=== PATIENT | male | born 1945 | race Caucasian/White ===

== ENCOUNTER 2016-12-31 22:59 | Emergency (ER) | payer MEDICARE, BC ==
[2017-01-01] MEDS ORDERED: ASPIRIN 81 MG TABLET, CHEWABLE PO ONE (00:30)
[2017-01-01 00:37] LABS: ABSOLUTE EOSINOPHILS # (AUTO) 0.2 10^3/uL (0.0-0.6); ABSOLUTE LYMPHOCYTES (AUTO) 1.5 10^3/uL (0.5-4.7); ABSOLUTE MONOCYTES (AUTO) 0.5 10^3/uL (0.1-1.4); ABSOLUTE NEUT (AUTO) 2.2 10^3/uL (1.7-8.2); BASOPHILS % (AUTO) 0.8 % (0-2); EOSINOPHILS % (AUTO) 4.5 % (0-6); HEMATOCRIT 39.7 % (37.9-51.0); HEMOGLOBIN 13.6 g/dL (13.5-17.0); HGB HCT DIFFERENCE 1.1; LYMPHOCYTES % (AUTO) 33.6 % (13-45); MEAN CORPUSCULAR HGB CONC 34.3 g/dL (32.0-36.0); MEAN CORPUSCULAR VOLUME 97 fl (80-97); MONOCYTES % (AUTO) 11.2 % (3-13); RED BLOOD COUNT 4.12 10^6/uL (4.35-5.55); RED CELL DISTRIBUTION WIDTH 12.9 % (11.5-14.0); SEGMENTED NEUTROPHILS % (AUTO) 49.9 % (42-78); WHITE BLOOD COUNT 4.4 10^3/uL (4.0-10.5)
[2017-01-01] MEDS ORDERED: FAMOTIDINE 20 MG TABLET PO ONE (00:37)
[2017-01-01 00:54] LABS: ALANINE AMINOTRANSFERASE 31 U/L (21-72); ALBUMIN 4.4 g/dL (3.5-5.0); ALKALINE PHOSPHATASE 49 U/L (38-126); ANION GAP 11 (5-19); ASPARTATE AMINO TRANSFERASE 46 U/L (17-59); BILIRUBIN,DIRECT 0.3 mg/dL (0.0-0.4); BILIRUBIN,TOTAL 0.5 mg/dL (0.2-1.3); BLOOD UREA NITROGEN 17 mg/dL (7-20); CALCIUM 9.4 mg/dL (8.4-10.2); CARBON DIOXIDE 25 mmol/L (22-30); CHLORIDE 103 mmol/L (98-107); CREATINE KINASE 131 U/L (55-170); CREATININE RESULT 0.86 mg/dL (0.52-1.25); GLUCOSE 102 mg/dL (75-110); POTASSIUM 4.2 mmol/L (3.6-5.0); SODIUM 138.8 mmol/L (137-145); TOTAL PROTEIN 7.4 g/dL (6.3-8.2)
--- NOTE | 2017-01-01 00:55 | ER Document Report ---
ED Cardiac - General Chief Complaint: Chest Pressure Stated Complaint: CHEST PRESSURE Time Seen by Provider: 01/01/17 00:30 Notes: Patient is a 71 year old male that comes to the ED for chief complaint of chest discomfort and a pressure sensation across the mid lower chest. Symptoms started at about noon today, reports he gets about 10 seconds of discomfort at random which resolves. He denies shortness of breath, cough, radiation to his back, nausea/vomiting. Unchanged with lying down, eating, or exertion. Denies history of HI, past medical history includes cardiomyopathy, COPD, hypertension , abdominal AAA. He states he had a negative stress test years ago. He has a follow-up with cardiology within the next few days. His primary care provider is in [facility]. He denies current chest pain. TRAVEL OUTSIDE OF THE [place] IN LAST 30 DAYS: No - Related Data Allergies/Adverse Reactions: ciprofloxacin [Ciprofloxacin] Allergy (Verified 01/01/17 00:18) clonidine [Clonidine] Allergy (Verified 01/01/17 00:18) levofloxacin [From Levaquin] Allergy (Verified 01/01/17 00:18) pravastatin [Pravastatin] Allergy (Verified 01/01/17 00:18) rosuvastatin calcium [From Crestor] Allergy (Verified 01/01/17 00:18) simvastatin [Simvastatin] Allergy (Verified 01/01/17 00:18) Home Medications: Current Home Medications Albuterol Sulfate [Ventolin Hfa] 1 - 2 puff IH Q4 PRN 01/01/17 [History] Amlodipine Besylate [Amlodipine Besylate] 1 tab PO QPM 01/01/17 [History] Fluticasone/Salmeterol [Advair 250-50 Diskus 28 dose] 1 inh IH Q12H 01/01/17 [ History] Gabapentin [Gabapentin] 1 cap PO BID 01/01/17 [History] Losartan Potassium [Losartan Potassium] 1 tab PO QAM 01/01/17 [History] Primidone [Primidone] 1 tab PO QPM 01/01/17 [History] Past Medical History - General Information source: Patient - Social History Smoking Status: Former Smoker Chew tobacco use (# tins/day): No Frequency of alcohol use: None Drug Abuse: None Lives with: Family Family History: Reviewed & Not Pertinent - Past Medical History Cardiac Medical History: Reports: Hx Hypercholesterolemia, Hx Hypertension Pulmonary Medical History: Reports: Hx COPD Renal/ Medical History: Reports: Hx Kidney Stones. Denies: Hx Peritoneal Dialysis Past Surgical History: Reports: Hx Cardiac Surgery - AAA, Hx Kidney (Renal Surgery) - Lithotripsy - Immunizations Hx Diphtheria, Pertussis, Tetanus Vaccination: Yes Review of Systems - Review of Systems Constitutional: No symptoms reported EENT: No symptoms reported Cardiovascular: See HPI Respiratory: No symptoms reported Gastrointestinal: No symptoms reported Genitourinary: No symptoms reported Male Genitourinary: No symptoms reported Musculoskeletal: No symptoms reported Skin: No symptoms reported Hematologic/Lymphatic: No symptoms reported Neurological/Psychological: No symptoms reported Physical Exam - Vital signs Vitals: Temp 97.6 F 12/31/16 23:17 Interpretation: Normal - General General appearance: Appears well In distress: None - HEENT Head: Normocephalic, Atraumatic Eyes: Normal Pupils: PERRL - Respiratory Respiratory status: No respiratory distress Chest status: Nontender Breath sounds: Normal. No: Decreased air movement Chest palpation: Normal - Cardiovascular Rhythm: Regular, Bradycardia Heart sounds: Normal auscultation Murmur: No - Abdominal Inspection: Normal Distension: No distension Bowel sounds: Normal Tenderness: Nontender Organomegaly: No organomegaly - Back Back: Normal, Nontender - Extremities General upper extremity: Normal inspection, Nontender, Normal color, Normal ROM , Normal temperature General lower extremity: Normal inspection, Nontender, Normal color, Normal ROM , Normal temperature, Normal weight bearing. No: Monica's sign - Neurological Neuro grossly intact: Yes Cognition: Normal Orientation: AAOx4 Dwight Coma Scale Eye Opening: Spontaneous Dwight Coma Scale Verbal: Oriented Dwight Coma Scale Motor: Obeys Commands Sanborn Coma Scale Total: 15 Speech: Normal Motor strength normal: LUE, RUE, LLE, RLE Sensory: Normal - Psychological Associated symptoms: Normal affect, Normal mood - Skin Skin Temperature: Warm Skin Moisture: Dry Skin Color: Normal Course - Re-evaluation Re-evalutation: EKG shows sinus rhythm, bradycardia, no ST segment or T-wave abnormalities in consecutive leads, chest x-ray unremarkable, CBC, chemistry unremarkable, negative cardiac enzyme. Cardiac enzymes repeated and still negative. Patient noted to have what appears to be significant bradycardia, however he denies any dizziness, passing out, he states that he has had bradycardia like that for a long time and this is very normal for him even down into the 30s. Discussed admission for telemetry observation because of patient's age, history, nonspecific symptoms. Patient declines, he states he has a close follow-up with cardiology within the next couple of days, states that he will keep this appointment, states that he will return if he worsens, he has not had any symptoms while he was here, he states he understands return precautions and importance of following up. - Vital Signs Vital signs: Temp Pulse Resp BP Pulse Ox 97.8 F 13 149/76 H 94 01/01/17 03:50 01/01/17 03:48 01/01/17 03:48 01/01/17 03:48 - Laboratory Result Diagrams: 01/01/17 00:05 01/01/17 00:05 Laboratory results interpreted by me: 01/01/17 00:05 RBC 4.12 L Discharge - Discharge Clinical Impression: Chest pain Qualifiers: Chest pain type: unspecified Qualified Code(s): R07.9 - Chest pain, unspecified Condition: Stable Disposition: HOME, SELF-CARE Additional Instructions: Your workup did not show any acute abnormalities. Please perform close followup with your medical accounting clerk as already planned. Return to the ED for any returned or concerning worsening symptoms. Chest Pain of Unclear Cause The exact cause of your chest pain isn't clear. Fortunately, there is no evidence of a dangerous medical condition. Further testing may be required to find the source of the pain. Most often, we find that this pain is coming from the chest wall -- the muscles or rib joints in the chest. But chest pain can come from the lung and lung lining, the esophagus, the heart valves or heart lining, and even the stomach or gallbladder. Rest. Eat lightly until the pain is gone. We may prescribe medicine for pain and inflammation. You should call the physician immediately if the pain radiates to the shoulder, jaw or arms; if you start to run a fever or develop a cough; or if you develop shortness of breath, or other new or alarming symptoms. Referrals: KAISER ARNOLD MD [Primary Care Provider] - Follow up as needed
[2017-01-01 01:06] LABS: CREATINE KINASE MB 2.31 ng/mL (<4.55); TROPONIN I < 0.012 ng/mL
--- NOTE | 2017-01-01 01:32 | RADIOLOGY REPORT (SQ) ---
EXAM DESCRIPTION: CHEST SINGLE VIEW COMPLETED DATE/TIME: 01/01/2017 12:49 am REASON FOR STUDY: chest pain COMPARISON: None. EXAM PARAMETERS: NUMBER OF VIEWS: One view. TECHNIQUE: Single frontal radiographic view of the chest acquired. RADIATION DOSE: NA LIMITATIONS: None. FINDINGS: LUNGS AND PLEURA: Small left basilar atelectasis or scar. MEDIASTINUM AND HILAR STRUCTURES: No masses. Contour normal. HEART AND VASCULAR STRUCTURES: Heart normal in size. Atherosclerosis. BONES: No acute findings. HARDWARE: None in the chest. OTHER: No other significant finding. IMPRESSION: No acute cardiopulmonary findings. TECHNICAL DOCUMENTATION: JOB ID: [id number]
[2017-01-01 03:54] VITALS: BP 149/76
--- NOTE | 2017-01-01 07:12 | EKG REPORT ---
SEVERITY:- ABNORMAL ECG - SINUS BRADYCARDIA FIRST DEGREE AV BLOCK LEFT ANTERIOR FASCICULAR BLOCK : Confirmed by: Maliha Stewart 01-Jan-2017 07:11:53
== END 2017-01-01 03:55 | disposition home or self-care (01) ==
LOC: ER 22:59
DX: R07.9 Chest pain, unspecified (principal); Z87.891 Personal history of nicotine dependence; Z79.899 Other long term (current) drug therapy
CPT/HCPCS: 93005; 99285; 36415; 82553; 82550; 83690; 85025; 80053; 84484; 71010; 93010; A9270 ×2

== ENCOUNTER 2017-07-22 10:45 | Emergency (ER) | payer MEDICARE, BC ==
--- NOTE | 2017-07-22 12:22 | ER Document Report ---
ED Medical Screen (RME) - General TRAVEL OUTSIDE OF THE [place] IN LAST 30 DAYS: No <ZORA POMPA - Last Filed: 07/22/17 12:21> <JAKE RICARDO - Last Filed: 07/22/17 17:26> - General Chief Complaint: Chest Pain Stated Complaint: CHEST DISCOMFORT Time Seen by Provider: 07/22/17 12:02 Notes: 72-year-old male patient complains of chest discomfort that started may be sometime during the night but was present when he woke up this morning. He describes it as a pressure comes and goes and painful at times. There is no shortness of breath or sweating associated with this. He did have a pacemaker placed on 03/13/2017 probably for a sick sinus syndrome. There was no catheterization done but he did have an echo done. There is no history of coronary artery disease but there is vascular disease with hypertension and hyperlipidemia. He has an infrarenal abdominal aortic aneurysm which is grown to 5 cm by his history. He has an appointment with his vascular surgeon this coming Thursday. I have greeted and performed a rapid initial assessment of this patient. A comprehensive ED assessment and evaluation of the patient, analysis of test results and completion of the medical decision making process will be conducted by additional ED providers. (ZORA POMPA) - Related Data Allergies/Adverse Reactions: ciprofloxacin [Ciprofloxacin] Allergy (Verified 07/22/17 11:52) clonidine [Clonidine] Allergy (Verified 07/22/17 11:52) levofloxacin [From Levaquin] Allergy (Verified 07/22/17 11:52) pravastatin [Pravastatin] Allergy (Verified 07/22/17 11:52) rosuvastatin calcium [From Crestor] Allergy (Verified 07/22/17 11:52) simvastatin [Simvastatin] Allergy (Verified 07/22/17 11:52) Past Medical History - Social History Chew tobacco use (# tins/day): No Frequency of alcohol use: None Drug Abuse: None - Past Medical History Cardiac Medical History: Reports: Hx Hypercholesterolemia, Hx Hypertension Pulmonary Medical History: Reports: Hx COPD Renal/ Medical History: Reports: Hx Kidney Stones. Denies: Hx Peritoneal Dialysis Past Surgical History: Reports: Hx Abdominal Surgery - inguinal hernia repair, Hx Cardiac Surgery - pacemaker, Hx Kidney (Renal Surgery) - Lithotripsy - Immunizations Hx Diphtheria, Pertussis, Tetanus Vaccination: Yes <ZORA POMPA - Last Filed: 07/22/17 12:21> - Vital signs Vitals: Temp Pulse Resp BP Pulse Ox 98.0 F 59 L 16 172/87 H 97 07/22/17 10:49 07/22/17 10:49 07/22/17 10:49 07/22/17 10:49 07/22/17 10:49 Course - Laboratory Result Diagrams: 07/22/17 12:30 07/22/17 13:24 <JAKE RICARDO - Last Filed: 07/22/17 17:26> - Vital Signs Vital signs: Temp Pulse Resp BP Pulse Ox 98.0 F 59 L 16 172/87 H 97 07/22/17 10:49 07/22/17 10:49 07/22/17 10:49 07/22/17 10:49 07/22/17 10:49 Doctor's Discharge <ZORA POMPA - Last Filed: 07/22/17 12:21> <JAKE RICARDO - Last Filed: 07/22/17 17:26> - Discharge Clinical Impression: Chest pain, non-cardiac Condition: Stable Disposition: HOME, SELF-CARE Referrals: KAISER ARNOLD MD [Primary Care Provider] - Follow up in 1 week
[2017-07-22 12:57] LABS: HEMOGLOBIN 15.4 g/dL (13.5-17.0); MEAN CORPUSCULAR HEMOGLOBIN 32.9 pg (27.0-33.4); MEAN CORPUSCULAR HGB CONC 34.2 g/dL (32.0-36.0); MEAN CORPUSCULAR VOLUME 96 fl (80-97); PLATELET COUNT 248 10^3/uL (150-450); RED BLOOD COUNT 4.67 10^6/uL (4.35-5.55); RED CELL DISTRIBUTION WIDTH 13.2 % (11.5-14.0); WHITE BLOOD COUNT 8.7 10^3/uL (4.0-10.5)
--- NOTE | 2017-07-22 13:08 | RADIOLOGY REPORT (SQ) ---
EXAM DESCRIPTION: CHEST SINGLE VIEW COMPLETED DATE/TIME: 07/22/2017 12:38 pm REASON FOR STUDY: chest pain COMPARISON: 05/18/2008 EXAM PARAMETERS: NUMBER OF VIEWS: One view. TECHNIQUE: Single frontal radiographic view of the chest acquired. RADIATION DOSE: NA LIMITATIONS: None. FINDINGS: LUNGS AND PLEURA: No opacities, masses or pneumothorax. No pleural effusion. MEDIASTINUM AND HILAR STRUCTURES: No masses. Contour normal. HEART AND VASCULAR STRUCTURES: Heart normal in size. Normal vasculature. BONES: No acute findings. HARDWARE: Left subclavian pacer. OTHER: No other significant finding. IMPRESSION: No evidence of acute cardiopulmonary disease. TECHNICAL DOCUMENTATION: JOB ID: [id number] [employer]- All Rights Reserved
[2017-07-22 13:16] LABS: ABSOLUTE LYMPHOCYTES# (MANUAL) 1.9 10^3/uL (0.5-4.7); ABSOLUTE MONOCYTES # (MANUAL) 0.4 10^3/uL (0.1-1.4); ABSOLUTE NEUTROPHILS# (MANUAL) 6.2 10^3/uL (1.7-8.2); BASOPHILS % (MANUAL) 0 % (0-2); EOSINOPHILS % (MANUAL) 2 % (0-6); LYMPHOCYTES % (MANUAL) 22 % (13-45); MONOCYTES % (MANUAL) 5 % (3-13); SEGMENTED NEUTROPHILS % (MAN) 71 % (42-78); TOTAL CELLS COUNTED 100
[2017-07-22 13:22] LABS: PLATELET COMMENT ADEQUATE; RBC MORPHOLOGY COMMENT NORMO-CYTIC/CHROMIC
[2017-07-22 13:53] LABS: ALANINE AMINOTRANSFERASE 43 U/L (21-72); ALBUMIN 4.7 g/dL (3.5-5.0); ALKALINE PHOSPHATASE 42 U/L (38-126); ANION GAP 10 (5-19); ASPARTATE AMINO TRANSFERASE 47 U/L (17-59); BILIRUBIN,DIRECT 0.2 mg/dL (0.0-0.4); BILIRUBIN,TOTAL 0.7 mg/dL (0.2-1.3); BLOOD UREA NITROGEN 14 mg/dL (7-20); CALCIUM 10.2 mg/dL (8.4-10.2); CARBON DIOXIDE 27 mmol/L (22-30); CHLORIDE 102 mmol/L (98-107); CREATINE KINASE 154 U/L (55-170); GLUCOSE 103 mg/dL (75-110); MAGNESIUM 2.2 mg/dL (1.6-2.3); SODIUM 138.5 mmol/L (137-145)
--- NOTE | 2017-07-22 16:56 | RADIOLOGY REPORT (SQ) ---
EXAM DESCRIPTION: CT ABD/PELVIS WITH IV ONLY COMPLETED DATE/TIME: 07/22/2017 4:44 pm REASON FOR STUDY: HX AAA, lower ant chest pain, enlarging AAA? COMPARISON: 2014. TECHNIQUE: CT scan of the abdomen and pelvis performed using helical scanning technique with dynamic intravenous contrast injection. No oral contrast. Images reviewed with lung, soft tissue, and bone windows. Reconstructed coronal and sagittal MPR images reviewed. Delayed images for evaluation of the urinary system also acquired. All images stored on PACS. All CT scanners at this facility use dose modulation, iterative reconstruction, and/or weight based d osing when appropriate to reduce radiation dose to as low as reasonably achievable (ALARA). [facility]: Dose Right [facility]: CareDose [facility]: Dose Right [facility]: Teradose 4D [facility]: Shareholder InSite CONTRAST TYPE AND DOSE: contrast/concentration: Isovue 370.00 mg/ml; Total Contrast Delivered: 92.0 ml; Total Saline Delivered: 70.0 ml RENAL FUNCTION: Creatinine 0.8 RADIATION DOSE: CT Rad equipment meets quality standard of care and radiation dose reduction techniq ues were employed. CTDIvol: 9.4 - 13.4 mGy. DLP: 1286 mGy-cm.. LIMITATIONS: None. FINDINGS: LOWER CHEST: Mild basilar scar. LIVER: Normal size. No masses. No dilated ducts. SPLEEN: Normal size. No focal lesions. PANCREAS: No masses. No significant calcifications. No adjacent inflammation or peripancreatic fluid collections. Pancreatic duct not dilated. GALLBLADDER: No identified stones by CT criteria. No inflammatory changes to suggest cholecystitis. ADRENAL GLANDS: No significant masses or asymmetry. RIGHT KIDNEY AND URETER: No solid masses. No significant calcification. No hydronephrosis or hydroure ter. LEFT KIDNEY AND URETER: No solid masses. No significant calcification. No hydronephrosis or hydrouret er. AORTA AND VESSELS: Infrarenal abdominal aortic aneurysm measures up to 4.5 cm maximal transverse dime nsion. Heavy vascular calcification. Grossly patent mesenteric and renal arteries. No venous clot detected. RETROPERITONEUM: No evidence of retroperitoneal hematoma, adenopathy or mass. BOWEL AND PERITONEAL CAVITY: Diverticulosis throughout the distal colon. No active diverticulitis griffin ggested. No mechanical bowel obstruction, ascites or abnormal gas. APPENDIX: Normal. PELVIS: No mass. No free fluid. Normal bladder. ABDOMINAL WALL: No masses. No hernias. BONES: No significant or acute findings. OTHER: No other significant finding. IMPRESSION: 1. 4.5 cm infrarenal abdominal aortic aneurysm (increased from 2015, 3.8 cm). No evide nce of leak or retroperitoneal mass. 2. Mild colonic diverticulosis but no evidence of active diver ticulitis. 3. No acute findings in the abdomen or pelvis. TECHNICAL DOCUMENTATION: JOB ID: [id number] Quality ID # [id number]: Final reports with documentation of one or more dose reduction techniques (e.g., Au tomated exposure control, adjustment of the mA and/or kV according to patient size, use of iterative reconstruction technique) 2010 [employer]- All Rights Reserved
[2017-07-22 17:29] VITALS: BP 167/86
--- NOTE | 2017-07-22 17:37 | ER Document Report ---
ED Cardiac - General Chief Complaint: Chest Pain Stated Complaint: CHEST DISCOMFORT Time Seen by Provider: 07/22/17 12:02 Notes: Patient says he is experiencing "discomfort" in his chest since last night and early this morning. He says that every 15-20 minutes, he experiences a pain that is about 1-2 seconds in length and then it goes away. This discomfort is located across the lower anterior chest from one breast to the other. He has not found anything that makes the discomfort happen or anything that gets them to stop happening. Patient has a history of a pacemaker inserted for bradycardia and 2017. Patient has a history of a abdominal aortic aneurysm. He went for an MRI of his lumbar spine because of sciatica and they checked his aneurysm and said that it was 5 cm, which was a significant increase from his prior study in February showing the aneurysm to be 4.3 cm. Patient is very concerned and says that his primary care provider has made him an appointment to see his vascular surgeon, in [place] on Thursday. Patient says that he is not experiencing any shortness of breath or difficulty breathing. PMH: Hypertension, high cholesterol TRAVEL OUTSIDE OF THE [place] IN LAST 30 DAYS: No - Related Data Allergies/Adverse Reactions: ciprofloxacin [Ciprofloxacin] Allergy (Verified 07/22/17 11:52) clonidine [Clonidine] Allergy (Verified 07/22/17 11:52) levofloxacin [From Levaquin] Allergy (Verified 07/22/17 11:52) pravastatin [Pravastatin] Allergy (Verified 07/22/17 11:52) rosuvastatin calcium [From Crestor] Allergy (Verified 07/22/17 11:52) simvastatin [Simvastatin] Allergy (Verified 07/22/17 11:52) Past Medical History - Social History Smoking Status: Never Smoker Chew tobacco use (# tins/day): No Frequency of alcohol use: None Drug Abuse: None Family History: Reviewed & Not Pertinent Patient has suicidal ideation: No Patient has homicidal ideation: No - Past Medical History Cardiac Medical History: Reports: Hx Hypercholesterolemia, Hx Hypertension, Other - AAA Pulmonary Medical History: Reports: Hx COPD Renal/ Medical History: Reports: Hx Kidney Stones Past Surgical History: Reports: Hx Abdominal Surgery - inguinal hernia repair, Hx Cardiac Surgery - pacemaker, Hx Kidney (Renal Surgery) - Lithotripsy - Immunizations Hx Diphtheria, Pertussis, Tetanus Vaccination: Yes Review of Systems - Review of Systems Notes: CONSTITUTIONAL : Denies fever. CARDIOVASCULAR: Denies chest pain, but see HPI. RESPIRATORY: Denies cough, chest congestion, or shortness of breath. GASTROINTESTINAL: Denies abdominal pain or nausea, vomiting, or diarrhea. GENITOURINARY: Denies difficulty or painful urinating, urinary frequency, blood in urine. Physical Exam - Vital signs Vitals: Temp Pulse Resp BP Pulse Ox 98.0 F 59 L 16 172/87 H 97 07/22/17 10:49 07/22/17 10:49 07/22/17 10:49 07/22/17 10:49 07/22/17 10:49 Interpretation: Hypertensive - Mild - Notes Notes: PHYSICAL EXAMINATION: GENERAL: Well-appearing, no acute distress. HEAD: Atraumatic, normocephalic. NECK: Normal range of motion, supple. LUNGS: Breath sounds clear and equal bilaterally. No chest wall tenderness. HEART: Regular rate and rhythm without murmurs heard. Extremities: No swelling or tenderness. Negative Homans bilaterally. ABDOMEN: Soft, nontender. No guarding or rebound or masses felt. No pulsatile mass felt. Course - Vital Signs Vital signs: Temp Pulse Resp BP Pulse Ox 97.9 F 59 L 15 167/86 H 97 07/22/17 17:26 07/22/17 10:49 07/22/17 17:26 07/22/17 17:26 07/22/17 17:05 - Laboratory Result Diagrams: 07/22/17 12:30 07/22/17 13:24 - Diagnostic Test Radiology reviewed: Image reviewed, Reports reviewed - CT scan shows a 4.5 cm AAA with no leakage. This is higher than the patient's previous study here a couple of years ago, but still within the limits of what can be followed electively. - EKG Interpretation by Me Rate: Normal - 60 Additional EKG results interpreted by me: 07/22/17 19:43 Patient's EKG shows atrial pacing at 60/min. Nonspecific ST changes present. Discharge - Discharge Clinical Impression: Chest pain, non-cardiac Condition: Stable Disposition: HOME, SELF-CARE Additional Instructions: CHEST PAIN OF UNCLEAR CAUSE: The exact cause of your chest pain isn't clear. Fortunately, there is no evidence of a dangerous medical condition. Further testing may be required to find the source of the pain. Most often, we find that this pain is coming from the chest wall -- the muscles or rib joints in the chest. But chest pain can come from the lung and lung lining, the esophagus, the heart valves or heart lining, and even the stomach or gallbladder. Rest. Eat lightly until the pain is gone. We may prescribe medicine for pain and inflammation. You should call the physician immediately if the pain radiates to the shoulder, jaw or arms; if you start to run a fever or develop a cough; or if you develop shortness of breath, or other new or alarming symptoms. NORMAL EXAM AND WORKUP: At this time, your examination and workup show no significant abnormality. No significant abnormal physical findings were noted. All laboratory, EKG, and imaging (x-ray, CT scans, ultrasound) studies that were ordered show no significant abnormality. Although your examination and all studies that were ordered showed no significant abnormal finding, there are no examinations and no studies that are 100% accurate. There is always the possibility that some abnormality could exist and not be detected with physical examination or within the limits and capabilities of laboratory and other studies. You should return or follow up as you were instructed on your visit today for further evaluation if your symptoms do not resolve. Workup does not indicate a significant worsening in the size of your aneurysm. I spoke with your vascular surgeon who said that it safe to send her home and for him to see you Thursday, as scheduled, in his office. Return at anytime if you develop new or worsening symptoms. Your blood pressure is running a little bit high and I would recommend that you increase your amlodipine from 5 mg to 10 mg in the evening. Follow-up with your primary care provider to get your blood pressure under better control. FOLLOW-UP CARE: If you have been referred to a physician for follow-up care, call the physician s office for an appointment as you were instructed or within the next two days. If you experience worsening or a significant change in your symptoms, notify the physician immediately or return to the Emergency Department at any time for re-evaluation. Referrals: KAISER ARNOLD MD [Primary Care Provider] - Follow up in 1 week
--- NOTE | 2017-07-22 23:18 | EKG REPORT ---
SEVERITY:- ABNORMAL ECG - ATRIAL-PACED COMPLEXES FIRST DEGREE AV BLOCK LEFT ANTERIOR FASCICULAR BLOCK NONSPECIFIC T CHANGES : Confirmed by: Maliha Stewart 22-Jul-2017 23:17:32
== END 2017-07-22 17:42 | disposition home or self-care (01) ==
LOC: ER 10:45
DX: R07.89 Other chest pain (principal); I71.4 Abdominal aortic aneurysm, without rupture; I10 Essential (primary) hypertension; J44.9 Chronic obstructive pulmonary disease, unspecified; R00.1 Bradycardia, unspecified; Z95.0 Presence of cardiac pacemaker; Z88.1 Allergy status to other antibiotic agents; Z88.8 Allergy status to other drugs, medicaments and biological substances
CPT/HCPCS: 36415; 71045; 74177; 80053; 82550; 83735; 84484; 85025; 93005; 93010; 99285

== ENCOUNTER 2019-07-12 20:31 | Emergency (ER) | payer MEDICARE, BC ==
--- NOTE | 2019-07-12 21:58 | ER Document Report ---
ED General - General Chief Complaint: Chest Pressure Stated Complaint: CHEST PRESSURE/FLANK PAIN Time Seen by Provider: 07/12/19 20:42 Primary Care Provider: KAISER ARNOLD MD [Primary Care Provider] - Follow up as needed Mode of Arrival: Ambulatory Information source: Patient TRAVEL OUTSIDE OF THE [place] IN LAST 30 DAYS: No - HPI Onset: Other - Today Onset/Duration: Gradual Quality of pain: Achy, Pressure Associated symptoms: None Exacerbated by: Denies Relieved by: Denies Similar symptoms previously: No Recently seen / treated by doctor: No Notes: 74 year old male with a history of a stable AAA, HTN, HLD, COPD, Kidney Stones, Pacemaker here for chest pain. The patient first noticed minor chest pains this morning that came and went. The patient then noticed some trouble urinating. The patient denies radiation of the chest pains, nausea, vomiting, sweating, fevers, chills. The patient is not sure whats going on but he wants to make sure his AAA is ok and that he isnt having heart issues or a kidney stone. - Related Data Allergies/Adverse Reactions: ciprofloxacin [Ciprofloxacin] Allergy (Verified 07/13/19 00:44) clonidine [Clonidine] Allergy (Verified 07/13/19 00:44) levofloxacin [From Levaquin] Allergy (Verified 07/13/19 00:44) pravastatin [Pravastatin] Allergy (Verified 07/13/19 00:44) rosuvastatin calcium [From Crestor] Allergy (Verified 07/13/19 00:44) simvastatin [Simvastatin] Allergy (Verified 07/13/19 00:44) Past Medical History - General Information source: Patient - Social History Smoking Status: Former Smoker Frequency of alcohol use: None Drug Abuse: None Family History: Reviewed & Not Pertinent - Past Medical History Cardiac Medical History: Reports: Hx Hypercholesterolemia, Hx Hypertension Pulmonary Medical History: Reports: Hx COPD Renal/ Medical History: Reports: Hx Kidney Stones. Denies: Hx Peritoneal Dialysis Past Surgical History: Reports: Hx Abdominal Surgery - inguinal hernia repair, Hx Cardiac Surgery - pacemaker, Hx Kidney (Renal Surgery) - Lithotripsy - Immunizations Hx Diphtheria, Pertussis, Tetanus Vaccination: Yes Review of Systems - Review of Systems Constitutional: No symptoms reported EENT: No symptoms reported Cardiovascular: Chest pain Respiratory: No symptoms reported Gastrointestinal: No symptoms reported Genitourinary: Other - minor trouble urinating Male Genitourinary: No symptoms reported Musculoskeletal: No symptoms reported Skin: No symptoms reported Hematologic/Lymphatic: No symptoms reported Neurological/Psychological: No symptoms reported -: Yes All other systems reviewed and negative Physical Exam - Vital signs Vitals: Temp Pulse Resp BP Pulse Ox 98.0 F 58 L 18 172/79 H 100 07/12/19 20:48 07/12/19 20:48 07/12/19 20:48 07/12/19 20:48 07/12/19 20:48 - Notes Notes: GENERAL: Well-appearing, well-nourished and in no acute distress. HEAD: Atraumatic, normocephalic. EYES: Pupils equal round and reactive to light, extraocular movements intact, sclera anicteric, conjunctiva are normal. ENT: TMs normal, nares patent, oropharynx clear without exudates. Moist mucous membranes. NECK: Normal range of motion, supple without lymphadenopathy or JVD. LUNGS: Breath sounds clear to auscultation bilaterally and equal. No wheezes rales or rhonchi. HEART: Regular rate and rhythm without murmurs, rubs or gallops. ABDOMEN: Soft, nontender, normoactive bowel sounds. No guarding, no rebound. No masses appreciated. EXTREMITIES: Normal range of motion, no pitting or edema. No clubbing or cyanosis. NEUROLOGICAL: Cranial nerves II through XII grossly intact. Normal speech, normal gait. PSYCH: Normal mood, normal affect. SKIN: Warm, Dry, normal turgor, no rashes or lesions noted. Course - Vital Signs Vital signs: Temp Pulse Resp BP Pulse Ox 98.0 F 58 L 17 147/87 H 95 07/12/19 20:48 07/12/19 20:48 07/13/19 01:01 07/13/19 01:01 07/13/19 01:01 - Laboratory Result Diagrams: 07/12/19 21:48 07/12/19 21:48 Laboratory results interpreted by me: 07/12/19 07/12/19 07/12/19 21:48 21:48 21:48 RBC 4.31 L RDW 14.2 H Sodium 130.4 L Chloride 94 L AST 60 H Creatine Kinase 519 H CK-MB (CK-2) 8.63 H - EKG Interpretation by Me Rate: Normal Rhythm: Other - AV Paced [place]/QRS: Left axis deviation When compared to previous EKG there are: No significant change Discharge - Discharge Clinical Impression: Urination pain Chest pain Qualifiers: Chest pain type: unspecified Qualified Code(s): R07.9 - Chest pain, unspecified Condition: Stable Disposition: HOME, SELF-CARE Instructions: Chest Pain of Unclear Cause ([facility]) Additional Instructions: Follow up with your primary care doctor and tell him about your ER visit. Tell your doctor you had blood work, a chest xray, a CT Abdomen/Pelvis. Bring your CT report to your primary care doctor. You had 2 negative Troponins (blood tests to look for heart damage) in the ER today but you should have an outpatient cardiac stress test if you have not had one in the last few years. Referrals: KAISER ARNOLD MD [Primary Care Provider] - Follow up as needed
[2019-07-12 22:01] LABS: ABSOLUTE BASOPHILS # (AUTO) 0.1 10^3/uL (0.0-0.2); ABSOLUTE EOSINOPHILS # (AUTO) 0.2 10^3/uL (0.0-0.6); ABSOLUTE LYMPHOCYTES (AUTO) 1.1 10^3/uL (0.5-4.7); ABSOLUTE MONOCYTES (AUTO) 0.5 10^3/uL (0.1-1.4); ABSOLUTE NEUT (AUTO) 2.1 10^3/uL (1.7-8.2); BASOPHILS % (AUTO) 1.3 % (0-2); EOSINOPHILS % (AUTO) 5.4 % (0-6); HEMATOCRIT 40.2 % (37.9-51.0); LYMPHOCYTES % (AUTO) 27.7 % (13-45); MEAN CORPUSCULAR HEMOGLOBIN 32.5 pg (27.0-33.4); MEAN CORPUSCULAR HGB CONC 34.9 g/dL (32.0-36.0); MEAN CORPUSCULAR VOLUME 93 fl (80-97); MONOCYTES % (AUTO) 11.6 % (3-13); PLATELET COUNT 207 10^3/uL (150-450); RED BLOOD COUNT 4.31 10^6/uL (4.35-5.55); RED CELL DISTRIBUTION WIDTH 14.2 % (11.5-14.0); TOTAL CELLS COUNTED % (AUTO) 100 %
[2019-07-12 22:26] LABS: ALBUMIN 4.4 g/dL (3.5-5.0); ALKALINE PHOSPHATASE 44 U/L (38-126); ANION GAP 10 (5-19); ASPARTATE AMINO TRANSFERASE 60 U/L (17-59); BILIRUBIN,DIRECT 0.2 mg/dL (0.0-0.4); BILIRUBIN,TOTAL 0.5 mg/dL (0.2-1.3); BLOOD UREA NITROGEN 18 mg/dL (7-20); CALCIUM 9.5 mg/dL (8.4-10.2); CARBON DIOXIDE 26 mmol/L (22-30); CHLORIDE 94 mmol/L (98-107); CREATINE KINASE 519 U/L (55-170); GLUCOSE 96 mg/dL (75-110); POTASSIUM 4.4 mmol/L (3.6-5.0); TOTAL PROTEIN 7.1 g/dL (6.3-8.2)
[2019-07-12 22:34] LABS: CREATINE KINASE MB 8.63 ng/mL (<4.55)
--- NOTE | 2019-07-12 22:36 | EKG REPORT ---
SEVERITY:- ABNORMAL ECG - A-V DUAL-PACED RHYTHM WITH SOME INHIBITION : Confirmed by: Maliha Stewart 12-Jul-2019 22:36:11
[2019-07-12 22:49] LABS: TROPONIN I < 0.012 ng/mL
[2019-07-12 23:04] LABS: APPEARANCE,URINE CLEAR; BILIRUBIN,URINE NEGATIVE (NEGATIVE); COLOR,URINE STRAW; GLUCOSE, URINE NEGATIVE (NEGATIVE); KETONES,URINE NEGATIVE (NEGATIVE); LEUKOCYTE ESTERASE,URINE NEGATIVE (NEGATIVE); NITRITE,URINE NEGATIVE (NEGATIVE); PROTEIN,URINE NEGATIVE (NEGATIVE); URINE SPECIFIC GRAVITY 1.006; UROBILINOGEN,URINE NEGATIVE mg/dL (<2.0)
[2019-07-12] MEDS: NORMAL SALINE 1000 ML 1,000 ML IV ONE (23:40)
--- NOTE | 2019-07-12 23:41 | RADIOLOGY REPORT (SQ) ---
EXAM DESCRIPTION: CT ABDOMEN PELVIS WITH IV CONTRAST COMPLETED DATE/TME: 07/12/2019 21:04 CLINICAL HISTORY: 74 years Male rule out leaking AAA. also eval for kidney stones. COMPARISON: 07/22/2017. TECHNIQUE: Contiguous axial images obtained through the abdomen and pelvis following IV contrast. Reformatted images obtained. This exam was performed according to our department optimization program which includes automated exposure control, adjustment of the mA and/or kv according to patient size and/or use of iterative reconstruction technique. FINDINGS: Atelectasis in the lung bases. Liver appears normal in size. The spleen and pancreas appear unremarkable. No adrenal masses. The kidneys appear unremarkable. No hydronephrosis. The gallbladder is visualized. Infrarenal abdominal aortic aneurysm measuring 5 cm. There is peripheral calcification. No evidence of dissection or rupture. Follow-up is recommended every six months and vascular surgery consultation is recommended. The aneurysm has increased when compared to the previous study by approximately 5 mm. No bowel obstruction. The appendix is unremarkable. No significant free fluid noted. Diverticulosis without evidence of diverticulitis. Multilevel degenerative change in the spine. IMPRESSION: 5 cm infrarenal abdominal aortic aneurysm without evidence of dissection or rupture. Recommend vascular surgery consultation and follow-up every six months. Aneurysm has increased in size when compared to previous study Diverticulosis without evidence of diverticulitis
--- NOTE | 2019-07-12 23:41 | RADIOLOGY REPORT (SQ) ---
EXAM DESCRIPTION: [facility]: XR CHEST 2 VIEWS Views: 2 CLINICAL HISTORY: 74 years Male, eval for chest pain COMPARISON: 07/22/2017 FINDINGS: Lungs are unchanged. There is no focal acute infiltrate. No pneumothorax or pleural effusion. Pacemaker is again noted, with intact leads. Mild aortic calcification is similar. Heart size is normal. No mediastinal widening or shift. Bony structures are unremarkable for age. IMPRESSION: 1. No acute cardiothoracic abnormality. 2. Pacemaker
[2019-07-13] MEDS: NORMAL SALINE 1000 ML 1,000 ML IV ONE (00:41)
[2019-07-13 01:58] VITALS: BP 147/84
== END 2019-07-13 01:57 | disposition home or self-care (01) ==
LOC: ER 20:31
DX: R07.9 Chest pain, unspecified (principal); R30.9 Painful micturition, unspecified; I71.4 Abdominal aortic aneurysm, without rupture; I10 Essential (primary) hypertension; J44.9 Chronic obstructive pulmonary disease, unspecified; Z87.442 Personal history of urinary calculi; Z95.0 Presence of cardiac pacemaker; Z87.891 Personal history of nicotine dependence; Z88.1 Allergy status to other antibiotic agents; Z88.8 Allergy status to other drugs, medicaments and biological substances
CPT/HCPCS: 93005; 99285; 96360; 96361; 36415; 82553; 82550; 83690; 85025; 80053; 81001; 84484; 71046; 74177; 93010; J7030